=== PATIENT | male | born 1935 | race Two or more races ===

== ENCOUNTER 2024-07-05 07:04 | Outpatient (CLI) | payer OTHER ==
[~2024-07-05 07:04] MED LIST: GABAPENTIN100 MG; LEVOFLOXACIN750 MG; MELATIN3 MG; METOPROLOL ER-1 EACH; NORVASC5 MG; SULFAMETHOXAZOL1 TA6; ULTRACET; ZOCOR5 MG
== END 2024-07-05 07:06 | disposition home or self-care (01) ==
LOC: NUCLEAR 07:04
PROVIDERS: ATTEND Internal Medicine
DX: I11.9 Hypertensive heart disease without heart failure (principal)
CPT/HCPCS: 78452; 93017; A9500